=== PATIENT | female | born 1960 | race Caucasian/White ===

== ENCOUNTER → 2017-02-12 | Outpatient (CLI) | payer OTHER ==
[~2017-02-12] MED LIST: AMANTADINE HCL100 M1 PO; ASPERCREAM1 EA T; CETIRIZINE10 MG PO; DAYTIME NIGHTT PO; FLONASE ALLERG9.9 ML NAS; FLUOXETINE20 MG PO; HTN MED; HYDROCHLOROTHIA25 M1 PO; LISINOPRIL20 MG PO; MEDROL DOSEPAK4 MG PO; NAPROXEN500 M1 PO; PANTOPRAZOLE SO20 MG PO; PRAVACHOL40 MG PO; PRAVASTATIN SOD20 MG PO; PREDNISONE10 MG PO; PREDNISONE20 M1 PO; PULMICORT180 MCG/Ac IH; SEPTRA DS 800 M1 TAB PO; SPIRIVA -- 3018 MCG PO; TAMIFLU75 MG PO; TRAMADOL HCL50 MG PO; VENTOLIN H0.09 MG/AC INH; VITAMIN B121000 MC1 PO; ZITHROMAX250 MG PO
== END | disposition home or self-care (01) ==
LOC: RESCLI 03:04
DX: J44.9 Chronic obstructive pulmonary disease, unspecified (principal); M15.9 Polyosteoarthritis, unspecified; M17.10 Unilateral primary osteoarthritis, unspecified knee; R73.03 Prediabetes; R53.82 Chronic fatigue, unspecified; K21.9 Gastro-esophageal reflux disease without esophagitis; F41.9 Anxiety disorder, unspecified; H90.3 Sensorineural hearing loss, bilateral; I10 Essential (primary) hypertension; J30.1 Allergic rhinitis due to pollen; M62.89 Other specified disorders of muscle; E66.01 Morbid (severe) obesity due to excess calories

== ENCOUNTER → 2017-02-18 | Outpatient (CLI) | payer OTHER ==
[2017-02-18 08:08] LABS: BASO % 0.3 % (0.0-1.0); EOS # 0.1 10*3/uL (0.0-0.4); EOS % 1.3 % (1.0-4.0); HEMATOCRIT 41.8 % (37.0-47.0); LYMPH # 1.9 10*3/uL (1.3-4.4); LYMPH % 32.2 % (27.0-41.0); MEAN CELL VOLUME 83.8 fl (81.0-99.0); MEAN CORPUSCULAR HGB 26.1 pg (27.0-31.0); MEAN CORPUSCULAR HGB CONC 31.1 g/dl (33.0-37.0); MEAN PLATELET VOLUME 10.8 fl (9.6-12.3); MONO # 0.4 10*3/uL (0.1-1.0); MONO % 7.1 % (3.0-9.0); NEUT # 3.5 10*3/uL (2.3-7.9); NEUT % 58.8 % (47.0-73.0); PLATELET COUNT AUTOMATED 159 10*3/uL (130-400); RED BLOOD COUNT 4.99 10*6/uL (4.10-5.10); RED CELL DISTRI WIDTH 15.9 % (0-14.5)
[2017-02-18 08:35] LABS: ALBUMIN 3.9 gm/dl (3.1-4.5); ALKALINE PHOSPHATASE 85 U/L (45-117); BUN 20 mg/dl (7-24); CHLORIDE 106 mmol/L (98-107); CHOLESTEROL 221 mg/dL (<200); CREATININE 0.94 mg/dL (0.55-1.02); HDL CHOLESTEROL 73 mg/dl (40-60); IRON 57 ug/dL (50-170); LDL CHOLESTEROL 137 mg/dL (9-159); POTASSIUM 4.1 mmol/L (3.5-5.1); SGOT/AST 15 IU/L (3-35); SGPT/ALT 18 U/L (12-78); SODIUM 142 mmol/L (136-145); TOTAL IRON BINDING CAPACITY 360 ug/dl (250-450); TOTAL PROTEIN 7.3 gm/dL (6.4-8.2); TRIGLYCERIDES 55 mg/dl (<150); VLDL CHOLESTEROL 11 mg/dL (6-40)
== END | disposition home or self-care (01) ==
LOC: LAB 07:32
PROVIDERS: Internal Medicine
DX: R53.82 Chronic fatigue, unspecified (principal); R73.03 Prediabetes; E78.00 Pure hypercholesterolemia, unspecified; R79.89 Other specified abnormal findings of blood chemistry

== ENCOUNTER → 2017-08-12 | Outpatient (CLI) | payer OTHER | END | disposition home or self-care (01) | LOC: RESCLI 02:12 | DX: J44.9 Chronic obstructive pulmonary disease, unspecified (principal); R21 Rash and other nonspecific skin eruption; E11.9 Type 2 diabetes mellitus without complications; D12.6 Benign neoplasm of colon, unspecified; R05 Cough; F41.9 Anxiety disorder, unspecified; M62.89 Other specified disorders of muscle; K21.9 Gastro-esophageal reflux disease without esophagitis; J30.1 Allergic rhinitis due to pollen; I10 Essential (primary) hypertension; E66.01 Morbid (severe) obesity due to excess calories; M62.838 Other muscle spasm; G54.0 Brachial plexus disorders ==

== ENCOUNTER → 2017-08-16 | Outpatient (CLI) | payer OTHER ==
[2017-08-16 09:59] LABS: BASO % 0.5 % (0.0-1.0); EOS # 0.1 10*3/uL (0.0-0.4); EOS % 1.9 % (1.0-4.0); HEMATOCRIT 42.9 % (37.0-47.0); HEMOGLOBIN 13.2 g/dl (12.0-16.0); LYMPH # 1.2 10*3/uL (1.3-4.4); LYMPH % 29.4 % (27.0-41.0); MEAN CELL VOLUME 82.2 fl (81.0-99.0); MEAN CORPUSCULAR HGB 25.3 pg (27.0-31.0); MEAN CORPUSCULAR HGB CONC 30.8 g/dl (33.0-37.0); MEAN PLATELET VOLUME 9.8 fl (9.6-12.3); MONO # 0.3 10*3/uL (0.1-1.0); MONO % 7.9 % (3.0-9.0); NEUT # 2.5 10*3/uL (2.3-7.9); NEUT % 60.1 % (47.0-73.0); PLATELET COUNT AUTOMATED 165 10*3/uL (130-400); RED BLOOD COUNT 5.22 10*6/uL (4.10-5.10); RED CELL DISTRI WIDTH 15.2 % (0-14.5); WHITE BLOOD COUNT 4.2 10*3/uL (4.8-10.8)
[2017-08-16 10:29] LABS: ALBUMIN 3.8 gm/dl (3.1-4.5); ALKALINE PHOSPHATASE 74 U/L (45-117); BUN 20 mg/dl (7-24); CHLORIDE 102 mmol/L (98-107); CREATININE 0.98 mg/dL (0.55-1.02); POTASSIUM 4.1 mmol/L (3.5-5.1); SGOT/AST 17 IU/L (3-35); SGPT/ALT 22 U/L (12-78); SODIUM 138 mmol/L (136-145); TOTAL PROTEIN 7.1 gm/dL (6.4-8.2)
== END | disposition home or self-care (01) ==
LOC: LAB 09:39
PROVIDERS: Internal Medicine
DX: R21 Rash and other nonspecific skin eruption (principal); E11.9 Type 2 diabetes mellitus without complications

== ENCOUNTER → 2017-09-10 | Outpatient (CLI) | payer OTHER | END | disposition home or self-care (01) | LOC: RESCLI 00:28 | DX: E11.65 Type 2 diabetes mellitus with hyperglycemia (principal); I10 Essential (primary) hypertension; F41.9 Anxiety disorder, unspecified; J30.1 Allergic rhinitis due to pollen; J44.9 Chronic obstructive pulmonary disease, unspecified; M62.89 Other specified disorders of muscle; K21.9 Gastro-esophageal reflux disease without esophagitis; L85.3 Xerosis cutis; R60.9 Edema, unspecified; E78.5 Hyperlipidemia, unspecified ==

== ENCOUNTER → 2017-09-13 | Outpatient (CLI) | payer OTHER | END | disposition home or self-care (01) | LOC: RAD 09:42 | DX: R05 Cough (principal); J44.9 Chronic obstructive pulmonary disease, unspecified; E11.9 Type 2 diabetes mellitus without complications; I10 Essential (primary) hypertension; F17.200 Nicotine dependence, unspecified, uncomplicated; Z85.41 Personal history of malignant neoplasm of cervix uteri ==

== ENCOUNTER → 2017-09-18 | Outpatient (CLI) | payer OTHER | END | disposition home or self-care (01) | LOC: CARD 00:16 | DX: R60.9 Edema, unspecified (principal); J44.9 Chronic obstructive pulmonary disease, unspecified ==

== ENCOUNTER → 2017-10-24 | Outpatient (CLI) | payer OTHER | END | disposition home or self-care (01) | LOC: LAB 01:31 → MAMMO 09:00 | DX: M46.02 Spinal enthesopathy, cervical region (principal); M48.02 Spinal stenosis, cervical region; N64.52 Nipple discharge; R20.0 Anesthesia of skin ==

== ENCOUNTER → 2017-11-06 | Outpatient (CLI) | payer OTHER ==
[~2017-11-06] MED LIST changes: +Metformin Hydr500 MG PO
== END | disposition home or self-care (01) ==
LOC: RESCLI 03:15
DX: E11.65 Type 2 diabetes mellitus with hyperglycemia (principal); I10 Essential (primary) hypertension; J30.1 Allergic rhinitis due to pollen; J44.9 Chronic obstructive pulmonary disease, unspecified; F41.9 Anxiety disorder, unspecified; M62.89 Other specified disorders of muscle; K21.9 Gastro-esophageal reflux disease without esophagitis; L85.3 Xerosis cutis; E78.5 Hyperlipidemia, unspecified; M15.9 Polyosteoarthritis, unspecified; M77.9 Enthesopathy, unspecified; R35.0 Frequency of micturition; N64.52 Nipple discharge; E66.01 Morbid (severe) obesity due to excess calories; Z88.0 Allergy status to penicillin

== ENCOUNTER → 2017-11-08 | Outpatient (CLI) | payer OTHER ==
[2017-11-08 09:09] LABS: BASO % 0.6 % (0.0-1.0); EOS # 0.1 10*3/uL (0.0-0.4); EOS % 1.1 % (1.0-4.0); HEMATOCRIT 39.4 % (37.0-47.0); HEMOGLOBIN 12.2 g/dl (12.0-16.0); LYMPH # 1.4 10*3/uL (1.3-4.4); LYMPH % 25.4 % (27.0-41.0); MEAN CELL VOLUME 82.6 fl (81.0-99.0); MEAN CORPUSCULAR HGB 25.6 pg (27.0-31.0); MEAN PLATELET VOLUME 10.1 fl (9.6-12.3); MONO # 0.5 10*3/uL (0.1-1.0); MONO % 8.5 % (3.0-9.0); NEUT # 3.5 10*3/uL (2.3-7.9); PLATELET COUNT AUTOMATED 166 10*3/uL (130-400); RED BLOOD COUNT 4.77 10*6/uL (4.10-5.10); RED CELL DISTRI WIDTH 15.9 % (0-14.5); WHITE BLOOD COUNT 5.4 10*3/uL (4.8-10.8)
[2017-11-08 09:24] LABS: ALBUMIN 3.8 gm/dl (3.1-4.5); ALKALINE PHOSPHATASE 67 U/L (45-117); BUN 21 mg/dl (7-24); CHLORIDE 107 mmol/L (98-107); CHOLESTEROL 194 mg/dL (<200); CREATININE 0.98 mg/dL (0.55-1.02); HDL CHOLESTEROL 58 mg/dl (40-60); LDL CHOLESTEROL 123 mg/dL (9-159); POTASSIUM 4.2 mmol/L (3.5-5.1); SGOT/AST 16 IU/L (3-35); SGPT/ALT 23 U/L (12-78); SODIUM 142 mmol/L (136-145); TOTAL PROTEIN 6.9 gm/dL (6.4-8.2); TRIGLYCERIDES 66 mg/dl (<150); VLDL CHOLESTEROL 13 mg/dL (6-40)
== END | disposition home or self-care (01) ==
LOC: LAB 08:35
PROVIDERS: Internal Medicine
DX: I10 Essential (primary) hypertension (principal); E11.65 Type 2 diabetes mellitus with hyperglycemia

== ENCOUNTER → 2017-11-26 | Outpatient (CLI) | payer OTHER | END | disposition home or self-care (01) | LOC: RESCLI 04:40 | DX: I10 Essential (primary) hypertension (principal); J44.9 Chronic obstructive pulmonary disease, unspecified; E11.65 Type 2 diabetes mellitus with hyperglycemia; K21.9 Gastro-esophageal reflux disease without esophagitis; E78.5 Hyperlipidemia, unspecified; F41.9 Anxiety disorder, unspecified; E66.01 Morbid (severe) obesity due to excess calories; F32.9 Major depressive disorder, single episode, unspecified; J30.9 Allergic rhinitis, unspecified; M62.89 Other specified disorders of muscle; M15.9 Polyosteoarthritis, unspecified; M77.9 Enthesopathy, unspecified; L85.3 Xerosis cutis; G47.00 Insomnia, unspecified; Z68.41 Body mass index [BMI] 40.0-44.9, adult; Z87.891 Personal history of nicotine dependence; Z88.0 Allergy status to penicillin ==

== ENCOUNTER → 2017-12-18 | Day surgery (SDC) | payer OTHER ==
[~2017-12-18] VITALS: Ht 157.4 cm; Wt 102.5 kg
--- NOTE | ~2017-12-18 | O ---
[place], [place] OPERATIVE NOTE NAME: CHAPARRO COVARRUBIAS UNIT #: [id number] ROOM: DOCTOR: MORIS MARTIN MD BIRTHDATE: [birth year] DOS: 12/18/2017 HISTORY OF PRESENT ILLNESS: The patient was presented with chief complaint concern about history of colonic polyp as well as a change in bowel habit. PAST MEDICAL HISTORY: Obesity, COPD, diabetes mellitus, hypertension and hyperlipidemia. PAST SURGICAL HISTORY: , hysterectomy and podiatric surgeries. FAMILY HISTORY: Noncontributory. SOCIAL HISTORY: Nonsmoker, nonalcohol consumer. PROCEDURE: Today's procedure part of investigation is colonoscopy plus sessile polypectomy. PREMEDICATION: Propofol. SCOPE: Olympus folding colonoscope 10L video. REPORT: After putting the patient in left lateral position and application of lubricant to the scope, the scope was introduced; thereafter, under direct visualization, advanced through the length of colon without difficulty. Moderate to severe diverticulosis of sigmoid colon was identified. Sessile polypoid lesion in sigmoid colon, piecemeal polypectomy removed. Base of the cecum explored, appendiceal orifice identified, ileocecal valve was photographed. Air was suctioned out. The patient was extubated, tolerated the procedure well. IMPRESSION: [id number]-[id number] diverticulosis, sigmoid colon, sessile colonic polyp, sigmoid colon, status post piecemeal polypectomy. PLAN AND DISCUSSION: High fiber diet. This patient does not require for more colonoscopy before 7-10 years and high fiber would suffice low fatty food. ACTIVITY: Ad regla. FOLLOWUP: As outpatient. [place], [place] OPERATIVE NOTE NAME: CHAPARRO COVARRUBIAS UNIT #: [id number] ROOM: DOCTOR: MORIS MARTIN MD BIRTHDATE: [birth year] MORIS MARTIN MD CM:OPRECORD:OPERATIVE NOTE [id number] MORIS MARTIN MD 12/18/17 1130 interface
[2017-12-18 09:20] VITALS: BP 111/79
[2017-12-18 10:41] VITALS: BP 118/82
[2017-12-18 10:56] VITALS: BP 108/70
[2017-12-18 11:11] VITALS: BP 134/71
== END | disposition home or self-care (01) ==
LOC: SDC 12-12 11:00
DX: K63.5 Polyp of colon (principal); K57.30 Diverticulosis of large intestine without perforation or abscess without bleeding; I10 Essential (primary) hypertension; E11.9 Type 2 diabetes mellitus without complications; J44.9 Chronic obstructive pulmonary disease, unspecified; E78.5 Hyperlipidemia, unspecified; K21.9 Gastro-esophageal reflux disease without esophagitis; E66.01 Morbid (severe) obesity due to excess calories; Z90.710 Acquired absence of both cervix and uterus; Z98.890 Other specified postprocedural states; Z79.899 Other long term (current) drug therapy; Z85.41 Personal history of malignant neoplasm of cervix uteri; Z82.49 Family history of ischemic heart disease and other diseases of the circulatory system; Z68.41 Body mass index [BMI] 40.0-44.9, adult

== ENCOUNTER → 2018-02-25 | Outpatient (CLI) | payer OTHER | END | disposition home or self-care (01) | LOC: RESCLI 03:42 | DX: I10 Essential (primary) hypertension (principal); M62.89 Other specified disorders of muscle; K21.9 Gastro-esophageal reflux disease without esophagitis; E78.5 Hyperlipidemia, unspecified; E11.65 Type 2 diabetes mellitus with hyperglycemia; G47.00 Insomnia, unspecified; J44.9 Chronic obstructive pulmonary disease, unspecified; F41.9 Anxiety disorder, unspecified; F32.1 Major depressive disorder, single episode, moderate; J30.1 Allergic rhinitis due to pollen; M15.9 Polyosteoarthritis, unspecified; N32.81 Overactive bladder; Z79.899 Other long term (current) drug therapy; Z79.82 Long term (current) use of aspirin; Z87.891 Personal history of nicotine dependence ==

== ENCOUNTER → 2018-03-05 | Outpatient (CLI) | payer OTHER ==
[2018-03-05 09:58] LABS: ALBUMIN 3.7 gm/dl (3.1-4.5); ALKALINE PHOSPHATASE 70 U/L (45-117); BUN 19 mg/dl (7-24); CHLORIDE 102 mmol/L (98-107); CHOLESTEROL 166 mg/dL (<200); CREATININE 0.96 mg/dL (0.55-1.02); HDL CHOLESTEROL 64 mg/dl (40-60); LDL CHOLESTEROL 88 mg/dL (9-159); POTASSIUM 3.9 mmol/L (3.5-5.1); SGOT/AST 20 IU/L (3-35); SGPT/ALT 25 U/L (12-78); SODIUM 138 mmol/L (136-145); TOTAL PROTEIN 6.8 gm/dL (6.4-8.2); TRIGLYCERIDES 69 mg/dl (<150); VLDL CHOLESTEROL 14 mg/dL (6-40)
[2018-03-05 10:35] LABS: BASO % 0.6 % (0.0-1.0); EOS # 0.1 10*3/uL (0.0-0.4); EOS % 1.4 % (1.0-4.0); HEMATOCRIT 40.3 % (37.0-47.0); HEMOGLOBIN 12.4 g/dl (12.0-16.0); LYMPH # 1.3 10*3/uL (1.3-4.4); LYMPH % 25.9 % (27.0-41.0); MEAN CELL VOLUME 81.4 fl (81.0-99.0); MEAN CORPUSCULAR HGB 25.1 pg (27.0-31.0); MEAN CORPUSCULAR HGB CONC 30.8 g/dl (33.0-37.0); MEAN PLATELET VOLUME 10.4 fl (9.6-12.3); MONO # 0.4 10*3/uL (0.1-1.0); MONO % 8.4 % (3.0-9.0); NEUT # 3.2 10*3/uL (2.3-7.9); NEUT % 63.5 % (47.0-73.0); PLATELET COUNT AUTOMATED 171 10*3/uL (130-400); RED BLOOD COUNT 4.95 10*6/uL (4.10-5.10); RED CELL DISTRI WIDTH 15.2 % (0-14.5)
== END | disposition home or self-care (01) ==
LOC: LAB 08:40
PROVIDERS: Internal Medicine
DX: E11.65 Type 2 diabetes mellitus with hyperglycemia (principal)

== ENCOUNTER → 2018-04-01 | Outpatient (CLI) | payer OTHER ==
[2018-04-01 10:18] LABS: BILIRUBIN NEGATIVE (NEGATIVE); BLOOD NEGATIVE (NEGATIVE); CLARITY SL CLOUDY (CLEAR); COLOR YELLOW (YELLOW); GLUCOSE NEGATIVE (NEGATIVE); KETONE NEGATIVE (NEGATIVE); LEUKO ESTERASE NEGATIVE (NEGATIVE); NITRITE NEGATIVE (NEGATIVE); UROBILINOGEN 0.2 E.U./dl (0.2-1.0)
[2018-04-01 10:27] LABS: BACTERIA 2+; EPITHELIAL CELLS 21-30
== END | disposition home or self-care (01) ==
LOC: RESCLI 03:20
PROVIDERS: Internal Medicine
DX: E11.65 Type 2 diabetes mellitus with hyperglycemia (principal); R30.0 Dysuria; N64.3 Galactorrhea not associated with childbirth; R60.9 Edema, unspecified; I10 Essential (primary) hypertension; M62.89 Other specified disorders of muscle; K21.9 Gastro-esophageal reflux disease without esophagitis; E78.5 Hyperlipidemia, unspecified; G47.00 Insomnia, unspecified; J44.9 Chronic obstructive pulmonary disease, unspecified; F41.9 Anxiety disorder, unspecified; F32.1 Major depressive disorder, single episode, moderate; J30.1 Allergic rhinitis due to pollen; N94.10 Unspecified dyspareunia; E66.01 Morbid (severe) obesity due to excess calories; Z79.899 Other long term (current) drug therapy; Z79.82 Long term (current) use of aspirin; Z87.891 Personal history of nicotine dependence; Z88.0 Allergy status to penicillin; Z88.8 Allergy status to other drugs, medicaments and biological substances

== ENCOUNTER → 2018-04-23 | Outpatient (CLI) | payer OTHER | END | disposition home or self-care (01) | LOC: CARD 04-18 08:00 | DX: R60.9 Edema, unspecified (principal) ==

== ENCOUNTER → 2018-05-06 | Outpatient (CLI) | payer OTHER | END | disposition home or self-care (01) | LOC: RESCLI 00:58 | DX: E11.65 Type 2 diabetes mellitus with hyperglycemia (principal); R60.9 Edema, unspecified; M15.9 Polyosteoarthritis, unspecified; I10 Essential (primary) hypertension; M62.89 Other specified disorders of muscle; K21.9 Gastro-esophageal reflux disease without esophagitis; E78.5 Hyperlipidemia, unspecified; G47.00 Insomnia, unspecified; J44.9 Chronic obstructive pulmonary disease, unspecified; F41.9 Anxiety disorder, unspecified; F32.1 Major depressive disorder, single episode, moderate; J30.1 Allergic rhinitis due to pollen; R53.82 Chronic fatigue, unspecified; N64.3 Galactorrhea not associated with childbirth; J30.2 Other seasonal allergic rhinitis; N94.9 Unspecified condition associated with female genital organs and menstrual cycle; K59.00 Constipation, unspecified; E66.01 Morbid (severe) obesity due to excess calories; Z79.84 Long term (current) use of oral hypoglycemic drugs; Z79.899 Other long term (current) drug therapy; Z79.82 Long term (current) use of aspirin; Z87.891 Personal history of nicotine dependence; Z88.0 Allergy status to penicillin; Z88.8 Allergy status to other drugs, medicaments and biological substances ==

== ENCOUNTER → 2018-06-13 | Outpatient (CLI) | payer OTHER | END | disposition home or self-care (01) | DX: I10 Essential (primary) hypertension (principal); R60.9 Edema, unspecified; M15.9 Polyosteoarthritis, unspecified; M62.89 Other specified disorders of muscle; K21.9 Gastro-esophageal reflux disease without esophagitis; E78.5 Hyperlipidemia, unspecified; G47.00 Insomnia, unspecified; J44.9 Chronic obstructive pulmonary disease, unspecified; F41.9 Anxiety disorder, unspecified; F32.1 Major depressive disorder, single episode, moderate; J30.1 Allergic rhinitis due to pollen; J30.2 Other seasonal allergic rhinitis; N94.9 Unspecified condition associated with female genital organs and menstrual cycle; K59.00 Constipation, unspecified; E11.65 Type 2 diabetes mellitus with hyperglycemia; N76.0 Acute vaginitis; Z79.899 Other long term (current) drug therapy; Z88.0 Allergy status to penicillin; Z88.8 Allergy status to other drugs, medicaments and biological substances ==

== ENCOUNTER → 2018-07-10 | Outpatient (CLI) | payer OTHER | END | disposition home or self-care (01) | LOC: RESCLI 03:14 | DX: I10 Essential (primary) hypertension (principal); L23.2 Allergic contact dermatitis due to cosmetics; E11.65 Type 2 diabetes mellitus with hyperglycemia; R60.9 Edema, unspecified; M15.9 Polyosteoarthritis, unspecified; M62.89 Other specified disorders of muscle; K21.9 Gastro-esophageal reflux disease without esophagitis; E78.5 Hyperlipidemia, unspecified; G47.00 Insomnia, unspecified; J44.9 Chronic obstructive pulmonary disease, unspecified; J30.1 Allergic rhinitis due to pollen; K59.00 Constipation, unspecified; Z79.899 Other long term (current) drug therapy; Z88.0 Allergy status to penicillin; Z87.891 Personal history of nicotine dependence ==

== ENCOUNTER → 2018-09-24 | Outpatient (CLI) | payer OTHER | END | disposition home or self-care (01) | LOC: RESCLI 02:54 | DX: M17.4 Other bilateral secondary osteoarthritis of knee (principal); J30.2 Other seasonal allergic rhinitis; R60.9 Edema, unspecified; I10 Essential (primary) hypertension; M62.89 Other specified disorders of muscle; K21.9 Gastro-esophageal reflux disease without esophagitis; E78.5 Hyperlipidemia, unspecified; G47.00 Insomnia, unspecified; J44.9 Chronic obstructive pulmonary disease, unspecified; J30.1 Allergic rhinitis due to pollen; K59.00 Constipation, unspecified; E11.65 Type 2 diabetes mellitus with hyperglycemia; L23.2 Allergic contact dermatitis due to cosmetics; Z79.899 Other long term (current) drug therapy; Z79.82 Long term (current) use of aspirin; Z79.84 Long term (current) use of oral hypoglycemic drugs; Z90.710 Acquired absence of both cervix and uterus; Z87.891 Personal history of nicotine dependence; Z88.0 Allergy status to penicillin; Z88.8 Allergy status to other drugs, medicaments and biological substances ==

== ENCOUNTER → 2018-10-28 | Outpatient (CLI) | payer OTHER | END | disposition home or self-care (01) | LOC: RESCLI 01:33 | DX: M79.604 Pain in right leg (principal); K59.00 Constipation, unspecified; K21.9 Gastro-esophageal reflux disease without esophagitis; J44.9 Chronic obstructive pulmonary disease, unspecified; E11.65 Type 2 diabetes mellitus with hyperglycemia; J30.2 Other seasonal allergic rhinitis; M15.9 Polyosteoarthritis, unspecified; M62.89 Other specified disorders of muscle; G47.00 Insomnia, unspecified; R60.9 Edema, unspecified; L23.2 Allergic contact dermatitis due to cosmetics; I10 Essential (primary) hypertension; E78.5 Hyperlipidemia, unspecified; Z79.899 Other long term (current) drug therapy; Z79.82 Long term (current) use of aspirin; Z87.891 Personal history of nicotine dependence; Z88.0 Allergy status to penicillin; Z88.8 Allergy status to other drugs, medicaments and biological substances ==

== ENCOUNTER → 2018-12-03 | Outpatient (CLI) | payer OTHER | END | disposition home or self-care (01) | LOC: RESCLI 00:09 | DX: M62.89 Other specified disorders of muscle (principal); G47.00 Insomnia, unspecified; J44.9 Chronic obstructive pulmonary disease, unspecified; I10 Essential (primary) hypertension; K21.9 Gastro-esophageal reflux disease without esophagitis; E78.5 Hyperlipidemia, unspecified; E11.65 Type 2 diabetes mellitus with hyperglycemia; R60.9 Edema, unspecified; J30.2 Other seasonal allergic rhinitis; M79.604 Pain in right leg; K59.00 Constipation, unspecified; N95.2 Postmenopausal atrophic vaginitis; F32.9 Major depressive disorder, single episode, unspecified; Z87.891 Personal history of nicotine dependence; Z79.899 Other long term (current) drug therapy ==

== ENCOUNTER → 2018-12-24 | Outpatient (CLI) | payer OTHER ==
[2018-12-24 09:40] LABS: BASO % 0.6 % (0.0-1.0); EOS # 0.1 10*3/uL (0.0-0.4); EOS % 2.1 % (1.0-4.0); HEMATOCRIT 43.8 % (37.0-47.0); LYMPH # 1.6 10*3/uL (1.3-4.4); LYMPH % 30.7 % (27.0-41.0); MEAN CELL VOLUME 81.6 fl (81.0-99.0); MEAN CORPUSCULAR HGB 24.2 pg (27.0-31.0); MEAN CORPUSCULAR HGB CONC 29.7 g/dl (33.0-37.0); MEAN PLATELET VOLUME 10.4 fl (9.6-12.3); MONO # 0.5 10*3/uL (0.1-1.0); MONO % 9.3 % (3.0-9.0); NEUT % 57.1 % (47.0-73.0); PLATELET COUNT AUTOMATED 218 10*3/uL (130-400); RED BLOOD COUNT 5.37 10*6/uL (4.10-5.10); RED CELL DISTRI WIDTH 16.4 % (0-14.5); WHITE BLOOD COUNT 5.2 10*3/uL (4.8-10.8)
[2018-12-24 10:09] LABS: ALBUMIN 3.9 gm/dl (3.1-4.5); ALKALINE PHOSPHATASE 71 U/L (45-117); BUN 17 mg/dl (7-24); CHLORIDE 103 mmol/L (98-107); CHOLESTEROL 140 mg/dL (<200); CREATININE 1.01 mg/dL (0.55-1.02); HDL CHOLESTEROL 75 mg/dl (40-60); LDL CHOLESTEROL 53 mg/dL (9-159); POTASSIUM 4.4 mmol/L (3.5-5.1); SGOT/AST 20 IU/L (3-35); SGPT/ALT 36 U/L (12-78); SODIUM 138 mmol/L (136-145); TOTAL PROTEIN 7.2 gm/dL (6.4-8.2); TRIGLYCERIDES 58 mg/dl (<150); VLDL CHOLESTEROL 12 mg/dL (6-40)
== END | disposition home or self-care (01) ==
LOC: LAB 09:00
PROVIDERS: Internal Medicine
DX: E11.65 Type 2 diabetes mellitus with hyperglycemia (principal); R60.9 Edema, unspecified; I10 Essential (primary) hypertension; E78.5 Hyperlipidemia, unspecified

== ENCOUNTER → 2019-01-01 | Outpatient (CLI) | payer OTHER | END | disposition home or self-care (01) | LOC: RESCLI 00:32 | DX: E11.65 Type 2 diabetes mellitus with hyperglycemia (principal); I12.9 Hypertensive chronic kidney disease with stage 1 through stage 4 chronic kidney disease, or unspecified chronic kidney disease; E11.22 Type 2 diabetes mellitus with diabetic chronic kidney disease; N18.3 Chronic kidney disease, stage 3 (moderate); N95.2 Postmenopausal atrophic vaginitis; E78.5 Hyperlipidemia, unspecified; K21.9 Gastro-esophageal reflux disease without esophagitis; J44.9 Chronic obstructive pulmonary disease, unspecified; G47.00 Insomnia, unspecified; M62.89 Other specified disorders of muscle; J30.2 Other seasonal allergic rhinitis; R60.9 Edema, unspecified; M79.604 Pain in right leg; K59.00 Constipation, unspecified; E66.01 Morbid (severe) obesity due to excess calories; Z79.899 Other long term (current) drug therapy ==

== ENCOUNTER → 2019-01-14 | Outpatient (CLI) | payer OTHER | END | disposition home or self-care (01) | LOC: MAMMO 10:03 | DX: Z12.31 Encounter for screening mammogram for malignant neoplasm of breast (principal) ==

== ENCOUNTER → 2019-04-02 | Outpatient (CLI) | payer OTHER ==
[2019-04-02 11:54] LABS: BILIRUBIN NEGATIVE (NEGATIVE); BLOOD NEGATIVE (NEGATIVE); CLARITY CLEAR (CLEAR); COLOR YELLOW (YELLOW); GLUCOSE 3+ (NEGATIVE); KETONE NEGATIVE (NEGATIVE); LEUKO ESTERASE NEGATIVE (NEGATIVE); NITRITE NEGATIVE (NEGATIVE); PH 6.5 (5.0-9.0); SPECIFIC GRAVITY <= 1.005 (1.005-1.030); UROBILINOGEN 0.2 E.U./dl (0.2-1.0)
[2019-04-02 12:11] LABS: BACTERIA TRACE; EPITHELIAL CELLS 0-2; WBC 0-2 wbc/hpf (0-5)
== END | disposition home or self-care (01) ==
LOC: RESCLI 01:13
PROVIDERS: Internal Medicine Nephrology
DX: R39.15 Urgency of urination (principal); M79.10 Myalgia, unspecified site; R09.81 Nasal congestion; H66.90 Otitis media, unspecified, unspecified ear; J44.9 Chronic obstructive pulmonary disease, unspecified; J45.909 Unspecified asthma, uncomplicated; E78.5 Hyperlipidemia, unspecified; Z79.899 Other long term (current) drug therapy

== ENCOUNTER → 2019-04-15 | Outpatient (CLI) | payer OTHER | END | disposition home or self-care (01) | LOC: RESCLI 00:51 | DX: M79.604 Pain in right leg (principal); E11.65 Type 2 diabetes mellitus with hyperglycemia; E78.5 Hyperlipidemia, unspecified; I10 Essential (primary) hypertension; J44.9 Chronic obstructive pulmonary disease, unspecified; G47.00 Insomnia, unspecified; M62.89 Other specified disorders of muscle; J30.2 Other seasonal allergic rhinitis; K59.00 Constipation, unspecified; R60.9 Edema, unspecified; K21.9 Gastro-esophageal reflux disease without esophagitis; H66.90 Otitis media, unspecified, unspecified ear; R09.81 Nasal congestion; Z79.899 Other long term (current) drug therapy; Z87.891 Personal history of nicotine dependence ==

== ENCOUNTER → 2019-05-20 | Outpatient (CLI) | payer OTHER | END | disposition home or self-care (01) | LOC: RESCLI 01:14 | DX: Z13.31 Encounter for screening for depression (principal); E11.65 Type 2 diabetes mellitus with hyperglycemia; E55.9 Vitamin D deficiency, unspecified; R19.7 Diarrhea, unspecified; F32.9 Major depressive disorder, single episode, unspecified; M79.604 Pain in right leg; E78.5 Hyperlipidemia, unspecified; I10 Essential (primary) hypertension; J44.9 Chronic obstructive pulmonary disease, unspecified; G47.00 Insomnia, unspecified; M62.89 Other specified disorders of muscle; J30.2 Other seasonal allergic rhinitis; K59.00 Constipation, unspecified; R60.9 Edema, unspecified; K21.9 Gastro-esophageal reflux disease without esophagitis; Z79.899 Other long term (current) drug therapy; Z87.891 Personal history of nicotine dependence ==

== ENCOUNTER → 2019-05-22 | Outpatient (CLI) | payer OTHER ==
[2019-05-22 12:31] LABS: BASO % 0.5 % (0.0-1.0); EOS # 0.1 10*3/uL (0.0-0.4); EOS % 1.2 % (1.0-4.0); LYMPH # 1.7 10*3/uL (1.3-4.4); LYMPH % 26.3 % (27.0-41.0); MEAN CELL VOLUME 79.6 fl (81.0-99.0); MEAN CORPUSCULAR HGB 23.5 pg (27.0-31.0); MEAN CORPUSCULAR HGB CONC 29.5 g/dl (33.0-37.0); MEAN PLATELET VOLUME 10.6 fl (9.6-12.3); MONO # 0.4 10*3/uL (0.1-1.0); MONO % 6.5 % (3.0-9.0); NEUT # 4.3 10*3/uL (2.3-7.9); NEUT % 65.3 % (47.0-73.0); PLATELET COUNT AUTOMATED 212 10*3/uL (130-400); RED BLOOD COUNT 5.53 10*6/uL (4.10-5.10); RED CELL DISTRI WIDTH 16.1 % (0-14.5); WHITE BLOOD COUNT 6.6 10*3/uL (4.8-10.8)
[2019-05-22 12:54] LABS: ALBUMIN 3.6 gm/dl (3.1-4.5); ALKALINE PHOSPHATASE 90 U/L (45-117); BUN 15 mg/dl (7-24); CHLORIDE 104 mmol/L (98-107); CREATININE 0.92 mg/dL (0.55-1.02); POTASSIUM 3.8 mmol/L (3.5-5.1); SGOT/AST 18 IU/L (3-35); SGPT/ALT 31 U/L (12-78); SODIUM 139 mmol/L (136-145); TOTAL PROTEIN 7.3 gm/dL (6.4-8.2)
[2019-05-23 09:09] LABS: CREATININE,URINE 66.6 mg/dL (Not Estab.); MICRO ALBUMIN/CRE RATIO <4.5 (0.0-30.0)
== END | disposition home or self-care (01) ==
LOC: LAB 11:49
PROVIDERS: Internal Medicine
DX: E11.65 Type 2 diabetes mellitus with hyperglycemia (principal); E55.9 Vitamin D deficiency, unspecified; R19.7 Diarrhea, unspecified

== ENCOUNTER → 2019-05-26 | Outpatient (CLI) | payer OTHER | END | disposition home or self-care (01) | LOC: LAB 09:24 | DX: E11.65 Type 2 diabetes mellitus with hyperglycemia (principal); E55.9 Vitamin D deficiency, unspecified; R19.7 Diarrhea, unspecified ==

== ENCOUNTER → 2019-06-02 | Outpatient (CLI) | payer OTHER | END | disposition home or self-care (01) | LOC: RESCLI 02:14 | DX: E11.65 Type 2 diabetes mellitus with hyperglycemia (principal); M79.604 Pain in right leg; E78.5 Hyperlipidemia, unspecified; I10 Essential (primary) hypertension; J44.9 Chronic obstructive pulmonary disease, unspecified; G47.00 Insomnia, unspecified; M62.89 Other specified disorders of muscle; K59.00 Constipation, unspecified; R60.9 Edema, unspecified; K21.9 Gastro-esophageal reflux disease without esophagitis; J30.2 Other seasonal allergic rhinitis; F32.9 Major depressive disorder, single episode, unspecified; Z79.899 Other long term (current) drug therapy; Z88.0 Allergy status to penicillin; Z88.8 Allergy status to other drugs, medicaments and biological substances; Z98.890 Other specified postprocedural states ==

== ENCOUNTER → 2019-06-23 | Outpatient (CLI) | payer OTHER | END | disposition home or self-care (01) | LOC: RESCLI 00:46 | DX: M62.89 Other specified disorders of muscle (principal); E11.65 Type 2 diabetes mellitus with hyperglycemia; M79.604 Pain in right leg; E78.5 Hyperlipidemia, unspecified; I10 Essential (primary) hypertension; G47.00 Insomnia, unspecified; K59.00 Constipation, unspecified; K21.9 Gastro-esophageal reflux disease without esophagitis; F32.9 Major depressive disorder, single episode, unspecified; J44.9 Chronic obstructive pulmonary disease, unspecified; R60.9 Edema, unspecified; Z79.899 Other long term (current) drug therapy; Z88.0 Allergy status to penicillin; Z88.6 Allergy status to analgesic agent; Z98.890 Other specified postprocedural states ==

== ENCOUNTER → 2019-07-28 | Outpatient (CLI) | payer OTHER | END | disposition home or self-care (01) | LOC: RESCLI 02:06 | DX: M62.89 Other specified disorders of muscle (principal); E11.65 Type 2 diabetes mellitus with hyperglycemia; M79.604 Pain in right leg; E78.5 Hyperlipidemia, unspecified; I10 Essential (primary) hypertension; G47.00 Insomnia, unspecified; K21.9 Gastro-esophageal reflux disease without esophagitis; J44.9 Chronic obstructive pulmonary disease, unspecified; F32.9 Major depressive disorder, single episode, unspecified; J30.2 Other seasonal allergic rhinitis; R60.9 Edema, unspecified; Z88.0 Allergy status to penicillin; Z88.8 Allergy status to other drugs, medicaments and biological substances; Z79.899 Other long term (current) drug therapy ==

== ENCOUNTER 2019-10-26 12:38 | Emergency (ER) | payer OTHER ==
[~2019-10-26] VITALS: Ht 157.4 cm; Wt 105.7 kg
[2019-10-26] MEDS ORDERED: DOXYCYCLINE100 M3 PO (13:40)
[2019-10-26 14:23] VITALS: BP 112/70
== END 2019-10-26 14:30 | disposition home or self-care (01) ==
LOC: ED 12:38
DX: J01.90 Acute sinusitis, unspecified (principal); J45.909 Unspecified asthma, uncomplicated; I10 Essential (primary) hypertension; J44.9 Chronic obstructive pulmonary disease, unspecified; Z88.8 Allergy status to other drugs, medicaments and biological substances; Z88.0 Allergy status to penicillin; Z79.899 Other long term (current) drug therapy

== ENCOUNTER → 2019-12-30 | Outpatient (CLI) | payer OTHER ==
[~2019-12-30] MED LIST changes: +DOXYCYCLINE100 M3 PO
== END | disposition home or self-care (01) ==
LOC: COVID19 01:34
DX: U07.1 COVID-19 (principal)

== ENCOUNTER → 2020-01-20 | Outpatient (CLI) | payer OTHER | END | disposition home or self-care (01) | LOC: COVID19 00:13 | DX: U07.1 COVID-19 (principal) ==

== ENCOUNTER → 2020-03-29 | Outpatient (CLI) | payer OTHER | END | disposition home or self-care (01) | LOC: RESCLI 01:06 | PROVIDERS: ATTEND Internal Medicine | DX: I12.9 Hypertensive chronic kidney disease with stage 1 through stage 4 chronic kidney disease, or unspecified chronic kidney disease (principal); N18.30 Chronic kidney disease, stage 3 unspecified; E11.65 Type 2 diabetes mellitus with hyperglycemia; R53.82 Chronic fatigue, unspecified; E55.9 Vitamin D deficiency, unspecified; E78.5 Hyperlipidemia, unspecified; H66.001 Acute suppurative otitis media without spontaneous rupture of ear drum, right ear; R60.9 Edema, unspecified; G47.00 Insomnia, unspecified; K21.9 Gastro-esophageal reflux disease without esophagitis; F41.9 Anxiety disorder, unspecified; J44.9 Chronic obstructive pulmonary disease, unspecified; E66.01 Morbid (severe) obesity due to excess calories; J30.1 Allergic rhinitis due to pollen; M17.10 Unilateral primary osteoarthritis, unspecified knee; N32.81 Overactive bladder; F32.9 Major depressive disorder, single episode, unspecified; Z68.41 Body mass index [BMI] 40.0-44.9, adult; Z12.31 Encounter for screening mammogram for malignant neoplasm of breast; Z79.899 Other long term (current) drug therapy; Z87.891 Personal history of nicotine dependence; Z98.890 Other specified postprocedural states ==

== ENCOUNTER → 2020-06-09 | Outpatient (CLI) | payer OTHER ==
[2020-06-09 10:07] LABS: BASO % 0.3 % (0.0-1.0); EOS # 0.1 10*3/uL (0.0-0.4); EOS % 1.3 % (1.0-4.0); HEMATOCRIT 45.4 % (37.0-47.0); LYMPH # 1.6 10*3/uL (1.3-4.4); MEAN CELL VOLUME 83.6 fl (81.0-99.0); MEAN CORPUSCULAR HGB 24.7 pg (27.0-31.0); MEAN CORPUSCULAR HGB CONC 29.5 g/dl (33.0-37.0); MEAN PLATELET VOLUME 10.3 fl (9.6-12.3); MONO # 0.4 10*3/uL (0.1-1.0); MONO % 6.6 % (3.0-9.0); NEUT # 4.2 10*3/uL (2.3-7.9); NEUT % 66.6 % (47.0-73.0); PLATELET COUNT AUTOMATED 183 10*3/uL (130-400); RED BLOOD COUNT 5.43 10*6/uL (4.10-5.10); RED CELL DISTRI WIDTH 16.1 % (0-14.5); WHITE BLOOD COUNT 6.3 10*3/uL (4.8-10.8)
[2020-06-09 10:22] LABS: ALBUMIN 3.7 gm/dl (3.1-4.5); ALKALINE PHOSPHATASE 79 U/L (45-117); BUN 18 mg/dl (7-24); CHLORIDE 105 mmol/L (98-107); CHOLESTEROL 188 mg/dL (<200); CREATININE 0.92 mg/dL (0.55-1.02); HDL CHOLESTEROL 66 mg/dl (40-60); LDL CHOLESTEROL 103 mg/dL (9-159); POTASSIUM 4.2 mmol/L (3.5-5.1); SGOT/AST 15 IU/L (3-35); SGPT/ALT 27 U/L (12-78); SODIUM 142 mmol/L (136-145); TOTAL PROTEIN 7.1 gm/dL (6.4-8.2); TRIGLYCERIDES 97 mg/dl (<150); VLDL CHOLESTEROL 19 mg/dL (6-40)
[2020-06-10 09:16] LABS: CREATININE,URINE 27.6 mg/dL (Not Estab.); MICRO ALBUMIN/CRE RATIO <11 (0-29)
== END | disposition home or self-care (01) ==
LOC: LAB 09:13 → MAMMO 09:30
PROVIDERS: Student in an Organized Health Care Education/Training Program; ATTEND Internal Medicine Nephrology
DX: Z12.31 Encounter for screening mammogram for malignant neoplasm of breast (principal); E11.65 Type 2 diabetes mellitus with hyperglycemia; E55.9 Vitamin D deficiency, unspecified; E78.5 Hyperlipidemia, unspecified

== ENCOUNTER → 2020-07-13 | Outpatient (CLI) | payer OTHER | END | disposition home or self-care (01) | LOC: RESCLI 00:40 | PROVIDERS: ATTEND Internal Medicine Nephrology | DX: E11.65 Type 2 diabetes mellitus with hyperglycemia (principal); E78.5 Hyperlipidemia, unspecified; I10 Essential (primary) hypertension; G47.00 Insomnia, unspecified; H66.001 Acute suppurative otitis media without spontaneous rupture of ear drum, right ear; J30.1 Allergic rhinitis due to pollen; N94.10 Unspecified dyspareunia; J44.9 Chronic obstructive pulmonary disease, unspecified; F32.9 Major depressive disorder, single episode, unspecified; K21.9 Gastro-esophageal reflux disease without esophagitis; R60.9 Edema, unspecified; M17.10 Unilateral primary osteoarthritis, unspecified knee; E55.9 Vitamin D deficiency, unspecified; Z79.84 Long term (current) use of oral hypoglycemic drugs; Z79.82 Long term (current) use of aspirin; Z79.899 Other long term (current) drug therapy; Z88.0 Allergy status to penicillin; Z88.8 Allergy status to other drugs, medicaments and biological substances ==

== ENCOUNTER → 2020-08-10 | Outpatient (CLI) | payer OTHER | END | disposition home or self-care (01) | LOC: RESCLI 09:18 | PROVIDERS: ATTEND Emergency Medicine | DX: J01.90 Acute sinusitis, unspecified (principal); I10 Essential (primary) hypertension; E11.9 Type 2 diabetes mellitus without complications; J44.9 Chronic obstructive pulmonary disease, unspecified; M47.22 Other spondylosis with radiculopathy, cervical region; Z79.899 Other long term (current) drug therapy; Z88.0 Allergy status to penicillin; Z88.8 Allergy status to other drugs, medicaments and biological substances ==

== ENCOUNTER 2020-09-01 09:46 | Emergency (ER) | payer OTHER ==
[~2020-09-01] VITALS: Ht 154.9 cm; Wt 112.5 kg
[2020-09-01 09:54] VITALS: BP 135/82
[2020-09-01 10:42] LABS: BASO % 0.3 % (0.0-1.0); EOS # 0.1 10*3/uL (0.0-0.4); EOS % 0.7 % (1.0-4.0); HEMATOCRIT 44.7 % (37.0-47.0); LYMPH # 1.3 10*3/uL (1.3-4.4); LYMPH % 18.8 % (27.0-41.0); MEAN CELL VOLUME 83.4 fl (81.0-99.0); MEAN CORPUSCULAR HGB 25.7 pg (27.0-31.0); MEAN CORPUSCULAR HGB CONC 30.9 g/dl (33.0-37.0); MEAN PLATELET VOLUME 10.7 fl (9.6-12.3); MONO # 0.5 10*3/uL (0.1-1.0); MONO % 7.7 % (3.0-9.0); NEUT # 5.1 10*3/uL (2.3-7.9); NEUT % 72.1 % (47.0-73.0); PLATELET COUNT AUTOMATED 190 10*3/uL (130-400); RED BLOOD COUNT 5.36 10*6/uL (4.10-5.10); RED CELL DISTRI WIDTH 16.4 % (0-14.5)
[2020-09-01 10:56] LABS: ALBUMIN 3.8 gm/dl (3.1-4.5); ALKALINE PHOSPHATASE 82 U/L (45-117); BUN 14 mg/dl (7-24); CHLORIDE 105 mmol/L (98-107); CREATININE 0.94 mg/dL (0.55-1.02); POTASSIUM 3.9 mmol/L (3.5-5.1); SGOT/AST 16 IU/L (3-35); SGPT/ALT 27 U/L (12-78); SODIUM 141 mmol/L (136-145); TOTAL PROTEIN 7.5 gm/dL (6.4-8.2)
[2020-09-01 10:56] LABS: BILIRUBIN Negative (Negative); BLOOD Negative (Negative); CLARITY Clear (Clear); COLOR Yellow (Yellow); GLUCOSE Negative (Negative); KETONE Negative (Negative); LEUKO ESTERASE Negative (Negative); NITRITE Negative (Negative); UROBILINOGEN 0.2 E.U./dl (0.0-1.0)
[2020-09-01 10:58] LABS: ACETAMINOPHEN (TYLENOL) < 5.0 ug/ml (10-30); ETHYL ALCOHOL < 3.0 mg/dl (<3)
[2020-09-01 11:07] LABS: URINE AMPHETAMINES < 1000 (1000ng/ml); URINE BARBITURATES < 200 (200ng/ml); URINE BENZODIAZEPINES < 200 (200ng/ml); URINE CANNABINOIDS (THC) > 50 (50ng/ml); URINE COCAINE < 300 (300ng/ml); URINE METHADONE < 300 (300ng/ml); URINE OPIATES < 300 (300ng/ml)
[2020-09-01 11:12] LABS: URINE PHENCYCLIDINE < 25 (25ng/ml)
== END 2020-09-01 12:39 | disposition home or self-care (01) ==
LOC: ED 09:46
PROVIDERS: Student in an Organized Health Care Education/Training Program
DX: F41.9 Anxiety disorder, unspecified (principal); F39 Unspecified mood [affective] disorder; I10 Essential (primary) hypertension; J44.9 Chronic obstructive pulmonary disease, unspecified; Z88.0 Allergy status to penicillin; Z88.8 Allergy status to other drugs, medicaments and biological substances; Z88.5 Allergy status to narcotic agent; Z79.899 Other long term (current) drug therapy; Z79.84 Long term (current) use of oral hypoglycemic drugs; Z90.711 Acquired absence of uterus with remaining cervical stump; Z98.890 Other specified postprocedural states

== ENCOUNTER 2021-01-02 09:55 | Emergency (ER) | payer OTHER ==
[2021-01-02 09:59] VITALS: BP 113/70
[2021-01-02] MEDS ORDERED: FLAGYL500 MG PO (10:54)
[2021-01-02] MEDS ORDERED: IBUPROFEN600 MG PO (10:54)
[2021-01-02] MEDS ORDERED: DOXYCYCLINE100 M3 PO (10:54)
== END 2021-01-02 12:11 | disposition home or self-care (01) ==
LOC: ED 09:55
DX: S61.252A Open bite of right middle finger without damage to nail, initial encounter (principal); E11.9 Type 2 diabetes mellitus without complications; Z88.0 Allergy status to penicillin; Z88.5 Allergy status to narcotic agent; Z88.8 Allergy status to other drugs, medicaments and biological substances; Z79.899 Other long term (current) drug therapy; Z79.2 Long term (current) use of antibiotics; Z90.711 Acquired absence of uterus with remaining cervical stump; Z98.890 Other specified postprocedural states; W55.01XA Bitten by cat, initial encounter; Y92.89 Other specified places as the place of occurrence of the external cause; Y99.8 Other external cause status

== ENCOUNTER 2021-01-30 12:39 | Emergency (ER) | payer OTHER ==
[~2021-01-30] VITALS: Ht 154.9 cm; Wt 112.5 kg
[~2021-01-30 12:39] MED LIST changes: +FLAGYL500 MG PO; +IBUPROFEN600 MG PO
[2021-01-30 13:08] VITALS: BP 131/74
[2021-01-30 14:47] LABS: BASO % 0.2 % (0.0-1.0); EOS % 0.2 % (1.0-4.0); HEMATOCRIT 42.5 % (37.0-47.0); LYMPH # 1.3 10*3/uL (1.3-4.4); LYMPH % 13.8 % (27.0-41.0); MEAN CELL VOLUME 83.7 fl (81.0-99.0); MEAN CORPUSCULAR HGB 25.8 pg (27.0-31.0); MEAN CORPUSCULAR HGB CONC 30.8 g/dl (33.0-37.0); MEAN PLATELET VOLUME 10.5 fl (9.6-12.3); MONO # 0.7 10*3/uL (0.1-1.0); MONO % 7.8 % (3.0-9.0); NEUT # 7.3 10*3/uL (2.3-7.9); NEUT % 77.8 % (47.0-73.0); PLATELET COUNT AUTOMATED 176 10*3/uL (130-400); RED BLOOD COUNT 5.08 10*6/uL (4.10-5.10); RED CELL DISTRI WIDTH 15.5 % (0-14.5); WHITE BLOOD COUNT 9.3 10*3/uL (4.8-10.8)
[2021-01-30 15:00] LABS: ALBUMIN 3.7 gm/dl (3.1-4.5); ALKALINE PHOSPHATASE 81 U/L (45-117); BUN 9 mg/dl (7-24); CHLORIDE 100 mmol/L (98-107); CREATININE 0.86 mg/dL (0.55-1.02); LIPASE 102 U/L (73-393); POTASSIUM 3.9 mmol/L (3.5-5.1); SGOT/AST 11 IU/L (3-35); SGPT/ALT 24 U/L (12-78); SODIUM 134 mmol/L (136-145); TOTAL PROTEIN 7.7 gm/dL (6.4-8.2)
[2021-01-30 15:02] LABS: BILIRUBIN Negative (Negative); BLOOD Negative (Negative); CLARITY Clear (Clear); COLOR Yellow (Yellow); GLUCOSE Negative (Negative); KETONE Negative (Negative); LEUKO ESTERASE Negative (Negative); NITRITE Negative (Negative)
[2021-01-30 15:20] LABS: BACTERIA TRACE; EPITHELIAL CELLS 0-2; RBC 0-2 rbc/hpf (0-2); WBC 0-2 wbc/hpf (0-5)
[2021-01-30] MEDS ORDERED: FLAGYL500 MG PO (20:26)
[2021-01-30] MEDS ORDERED: CIPRO500 MG PO (20:26)
== END 2021-01-30 20:37 | disposition home or self-care (01) ==
LOC: ED 12:39
PROVIDERS: Physician Assistant
DX: K57.32 Diverticulitis of large intestine without perforation or abscess without bleeding (principal); Z20.822 Contact with and (suspected) exposure to COVID-19; Z98.890 Other specified postprocedural states; Z90.711 Acquired absence of uterus with remaining cervical stump; Z98.51 Tubal ligation status; Z88.0 Allergy status to penicillin; Z88.5 Allergy status to narcotic agent; Z88.8 Allergy status to other drugs, medicaments and biological substances; Z79.2 Long term (current) use of antibiotics; Z79.899 Other long term (current) drug therapy

== ENCOUNTER → 2021-04-04 | Outpatient (CLI) | payer OTHER ==
[~2021-04-04] MED LIST changes: +CIPRO500 MG PO
== END | disposition home or self-care (01) ==
LOC: RAD 13:49
PROVIDERS: ATTEND Nurse Practitioner Primary Care
DX: M17.0 Bilateral primary osteoarthritis of knee (principal)

== ENCOUNTER → 2021-10-10 | Outpatient (CLI) | payer OTHER ==
[~2021-10-10] MED LIST changes: +CETIRIZINE HYDR10 MG PO; +INCRUSE ELLI62.5 MCG INH; +MELATONIN10 M4 PO; +QVAR REDIHALE10.6 GM INH; +SERTRALINE HYDR25 MG PO; +VICTOZA 2-0.6 MG/0.1 SQ; +VITAMIN D350 MCG PO; +ZOFRAN4 MG PO
== END | disposition home or self-care (01) ==
LOC: LAB 12:13
PROVIDERS: ATTEND Nurse Practitioner Primary Care
DX: E11.65 Type 2 diabetes mellitus with hyperglycemia (principal)

== ENCOUNTER → 2022-01-18 | Outpatient (CLI) | payer OTHER | END | disposition home or self-care (01) | LOC: CT 14:19 | PROVIDERS: ATTEND Nurse Practitioner Primary Care | DX: I67.82 Cerebral ischemia (principal); H74.8X3 Other specified disorders of middle ear and mastoid, bilateral; E11.8 Type 2 diabetes mellitus with unspecified complications; R40.4 Transient alteration of awareness; R41.3 Other amnesia; E78.5 Hyperlipidemia, unspecified; H53.9 Unspecified visual disturbance; R26.81 Unsteadiness on feet ==

== ENCOUNTER → 2022-02-23 | Outpatient (CLI) | payer OTHER | END | disposition home or self-care (01) | LOC: MRI 08:57 | PROVIDERS: ATTEND Specialist | DX: H74.8X1 Other specified disorders of right middle ear and mastoid (principal); R42 Dizziness and giddiness ==

== ENCOUNTER → 2022-03-28 | Day surgery (SDC) | payer OTHER ==
[~2022-03-28] VITALS: Ht 154.9 cm; Wt 108.0 kg
[~2022-03-28] MED LIST changes: +GLUCOPHAGE500 MG PO; -Metformin Hydr500 MG PO
[2022-03-28 08:10] VITALS: BP 128/93
[2022-03-28 08:44] VITALS: BP 103/57
[2022-03-28 08:59] VITALS: BP 99/72
[2022-03-28 09:14] VITALS: BP 116/71
== END | disposition home or self-care (01) ==
LOC: SDC 03-23 12:30
PROVIDERS: ATTEND Specialist
DX: H69.81 Other specified disorders of Eustachian tube, right ear (principal); H65.491 Other chronic nonsuppurative otitis media, right ear; I10 Essential (primary) hypertension; J44.9 Chronic obstructive pulmonary disease, unspecified; E11.9 Type 2 diabetes mellitus without complications; Z85.41 Personal history of malignant neoplasm of cervix uteri; Z90.710 Acquired absence of both cervix and uterus; Z87.891 Personal history of nicotine dependence; Z88.0 Allergy status to penicillin; Z88.5 Allergy status to narcotic agent; Z79.899 Other long term (current) drug therapy

== ENCOUNTER 2022-05-02 11:45 | Emergency (ER) | payer OTHER ==
[~2022-05-02] VITALS: Ht 154.9 cm; Wt 102.5 kg
[2022-05-02 11:56] VITALS: BP 126/74
[2022-05-02 12:44] LABS: BASO % 0.2 % (0.0-1.0); EOS % 0.9 % (1.0-4.0); LYMPH % 43.7 % (27.0-41.0); MEAN CORPUSCULAR HGB 26.4 pg (27.0-31.0); MEAN CORPUSCULAR HGB CONC 31.1 g/dl (33.0-37.0); MONO # 0.3 10*3/uL (0.1-1.0); MONO % 6.8 % (3.0-9.0); NEUT # 2.2 10*3/uL (2.3-7.9); NEUT % 48.2 % (47.0-73.0); PLATELET COUNT AUTOMATED 162 10*3/uL (130-400); RED BLOOD COUNT 5.41 10*6/uL (4.10-5.10); RED CELL DISTRI WIDTH 15.1 % (0-14.5); WHITE BLOOD COUNT 4.5 10*3/uL (4.8-10.8)
[2022-05-02 13:04] LABS: ALKALINE PHOSPHATASE 69 U/L (45-117); BUN 15 mg/dl (7-24); CHLORIDE 107 mmol/L (98-107); CREATININE 0.75 mg/dL (0.55-1.02); POTASSIUM 4.4 mmol/L (3.5-5.1); SGPT/ALT 27 U/L (12-78); SODIUM 140 mmol/L (136-145); TOTAL PROTEIN 7.6 gm/dL (6.4-8.2)
[2022-05-02] MEDS ORDERED: LEVOFLOXACIN750 M2 PO (14:56)
[2022-05-02] MEDS ORDERED: ONDANSETRON4 MG SL (15:20)
== END 2022-05-02 15:20 | disposition home or self-care (01) ==
LOC: ED 11:45
PROVIDERS: Physician Assistant
DX: H66.91 Otitis media, unspecified, right ear (principal); J06.9 Acute upper respiratory infection, unspecified; Z88.0 Allergy status to penicillin; Z88.8 Allergy status to other drugs, medicaments and biological substances; Z79.899 Other long term (current) drug therapy; Z90.710 Acquired absence of both cervix and uterus; Z98.890 Other specified postprocedural states; Z98.51 Tubal ligation status

== ENCOUNTER 2022-05-16 13:46 | Emergency (ER) | payer OTHER ==
[~2022-05-16 13:46] MED LIST changes: +LEVOFLOXACIN750 M2 PO; +ONDANSETRON4 MG SL
[2022-05-16 14:11] LABS: BASO % 0.4 % (0.0-1.0); EOS # 0.1 10*3/uL (0.0-0.4); EOS % 0.7 % (1.0-4.0); HEMATOCRIT 45.7 % (37.0-47.0); MEAN CELL VOLUME 85.6 fl (81.0-99.0); MEAN CORPUSCULAR HGB 26.8 pg (27.0-31.0); MEAN CORPUSCULAR HGB CONC 31.3 g/dl (33.0-37.0); MEAN PLATELET VOLUME 10.1 fl (9.6-12.3); MONO # 0.5 10*3/uL (0.1-1.0); MONO % 5.5 % (3.0-9.0); NEUT # 6.4 10*3/uL (2.3-7.9); PLATELET COUNT AUTOMATED 223 10*3/uL (130-400); RED BLOOD COUNT 5.34 10*6/uL (4.10-5.10); RED CELL DISTRI WIDTH 15.6 % (0-14.5)
[2022-05-16 14:32] LABS: ALKALINE PHOSPHATASE 71 U/L (46-116); BUN 20 mg/dl (9-23); CHLORIDE 105 mmol/L (98-107); CREATININE 0.86 mg/dL (0.55-1.02); POTASSIUM 4.3 mmol/L (3.4-5.1); SGPT/ALT 17 U/L (10-49); SODIUM 135 mmol/L (136-145); TOTAL PROTEIN 6.9 gm/dL (6.0-8.0)
[2022-05-16 14:35] LABS: ACT PARTIAL THROMBO TIME 26.7 SECONDS (20.0-32.1); INTERNATIONAL NORM RATIO 0.9 (2.0-3.5)
[2022-05-16 14:56] LABS: LIPASE 51 U/L (12-53)
[2022-05-16 17:16] VITALS: BP 110/68
== END 2022-05-16 18:05 | disposition home or self-care (01) ==
LOC: ED 13:46
PROVIDERS: Family Medicine
DX: R07.9 Chest pain, unspecified (principal); I10 Essential (primary) hypertension; E11.9 Type 2 diabetes mellitus without complications; Z88.0 Allergy status to penicillin; Z87.898 Personal history of other specified conditions; Z88.8 Allergy status to other drugs, medicaments and biological substances; Z90.710 Acquired absence of both cervix and uterus; F12.90 Cannabis use, unspecified, uncomplicated

== ENCOUNTER 2022-08-06 10:20 | Emergency (ER) | payer OTHER ==
[~2022-08-06] VITALS: Wt 104.3 kg
[2022-08-06 10:31] VITALS: BP 137/91
[2022-08-06] MEDS ORDERED: VIBRAMYCIN100 MG PO (11:55)
== END 2022-08-06 12:04 | disposition home or self-care (01) ==
LOC: ED 10:20
DX: H66.92 Otitis media, unspecified, left ear (principal); J45.909 Unspecified asthma, uncomplicated; I10 Essential (primary) hypertension; E11.9 Type 2 diabetes mellitus without complications; Z88.0 Allergy status to penicillin; Z88.8 Allergy status to other drugs, medicaments and biological substances; Z90.710 Acquired absence of both cervix and uterus; Z98.890 Other specified postprocedural states; Z98.51 Tubal ligation status; F12.90 Cannabis use, unspecified, uncomplicated; Z88.5 Allergy status to narcotic agent

== ENCOUNTER → 2023-01-02 | Outpatient (CLI) | payer OTHER ==
[~2023-01-02] MED LIST changes: +VIBRAMYCIN100 MG PO
[2023-01-02 08:50] LABS: BASO % 0.5 % (0.0-1.0); EOS % 0.7 % (1.0-4.0); HEMATOCRIT 44.9 % (37.0-47.0); LYMPH # 1.5 10*3/uL (1.3-4.4); LYMPH % 34.8 % (27.0-41.0); MEAN CELL VOLUME 87.9 fl (81.0-99.0); MEAN CORPUSCULAR HGB 26.8 pg (27.0-31.0); MEAN CORPUSCULAR HGB CONC 30.5 g/dl (33.0-37.0); MEAN PLATELET VOLUME 10.3 fl (9.6-12.3); MONO # 0.3 10*3/uL (0.1-1.0); MONO % 7.6 % (3.0-9.0); NEUT # 2.4 10*3/uL (2.3-7.9); NEUT % 56.2 % (47.0-73.0); PLATELET COUNT AUTOMATED 154 10*3/uL (130-400); RED BLOOD COUNT 5.11 10*6/uL (4.10-5.10); RED CELL DISTRI WIDTH 15.2 % (0-14.5); WHITE BLOOD COUNT 4.2 10*3/uL (4.8-10.8)
[2023-01-02 09:41] LABS: ALKALINE PHOSPHATASE 64 U/L (46-116); BUN 14 mg/dl (9-23); CHLORIDE 106 mmol/L (98-107); CHOLESTEROL 160 mg/dL (<200); LDL CHOLESTEROL 86 mg/dL (9-159); POTASSIUM 4.4 mmol/L (3.4-5.1); SGPT/ALT 17 U/L (10-49); TOTAL PROTEIN 6.4 gm/dL (6.0-8.0); TRIGLYCERIDES 60 mg/dl (<150)
== END | disposition home or self-care (01) ==
LOC: LAB 08:28
PROVIDERS: ATTEND Nurse Practitioner Primary Care
DX: E11.9 Type 2 diabetes mellitus without complications (principal); I10 Essential (primary) hypertension; E55.9 Vitamin D deficiency, unspecified; Z79.4 Long term (current) use of insulin

== ENCOUNTER → 2023-01-08 | Outpatient (CLI) | payer OTHER | END | disposition home or self-care (01) | LOC: CT 00:15 | PROVIDERS: ATTEND Nurse Practitioner Primary Care | DX: R25.1 Tremor, unspecified (principal); R42 Dizziness and giddiness; H53.9 Unspecified visual disturbance; R68.89 Other general symptoms and signs ==

== ENCOUNTER → 2023-05-10 | Outpatient (CLI) | payer OTHER | END | disposition home or self-care (01) | LOC: CT 08:53 | PROVIDERS: ATTEND Specialist | DX: J32.0 Chronic maxillary sinusitis (principal); J34.89 Other specified disorders of nose and nasal sinuses; H74.8X1 Other specified disorders of right middle ear and mastoid ==

== ENCOUNTER 2023-11-11 13:14 | Emergency (ER) | payer OTHER ==
[~2023-11-11] VITALS: Ht 154.9 cm; Wt 94.9 kg
[2023-11-11 14:04] VITALS: BP 105/57
[2023-11-11] MEDS ORDERED: Cyclobenzaprine Hydrochlorid 10 MG TAB PO ONE (14:15)
[2023-11-11] MEDS ORDERED: methylPREDNISolone sod succ 125 MG VIAL IM ONE (14:15)
[2023-11-11] MEDS ORDERED: Ketorolac Tromethamine 30 MG/ML VIAL IM ONE (14:15)
[2023-11-11] MEDS ORDERED: OMNICEF300 MG PO (16:54)
== END 2023-11-11 17:00 | disposition home or self-care (01) ==
LOC: ED 13:14
DX: H70.91 Unspecified mastoiditis, right ear (principal); E11.9 Type 2 diabetes mellitus without complications; J44.9 Chronic obstructive pulmonary disease, unspecified; F41.9 Anxiety disorder, unspecified; I10 Essential (primary) hypertension; E78.5 Hyperlipidemia, unspecified; Z88.0 Allergy status to penicillin; Z88.5 Allergy status to narcotic agent; Z88.8 Allergy status to other drugs, medicaments and biological substances; Z90.710 Acquired absence of both cervix and uterus; Z98.890 Other specified postprocedural states; Z98.51 Tubal ligation status; F12.90 Cannabis use, unspecified, uncomplicated; J45.909 Unspecified asthma, uncomplicated

== ENCOUNTER → 2023-12-11 | Outpatient (CLI) | payer OTHER ==
[~2023-12-11] MED LIST changes: +OMNICEF300 MG PO
[2023-12-11 08:26] LABS: EOS # 0.1 10*3/uL (0.0-0.4); EOS % 1.8 % (1.0-4.0); HEMATOCRIT 45.2 % (37.0-47.0); LYMPH # 1.3 10*3/uL (1.3-4.4); LYMPH % 32.7 % (27.0-41.0); MEAN CELL VOLUME 87.9 fl (81.0-99.0); MEAN CORPUSCULAR HGB 26.3 pg (27.0-31.0); MEAN CORPUSCULAR HGB CONC 29.9 g/dl (33.0-37.0); MEAN PLATELET VOLUME 10.1 fl (9.6-12.3); MONO # 0.3 10*3/uL (0.1-1.0); MONO % 7.3 % (3.0-9.0); NEUT # 2.2 10*3/uL (2.3-7.9); NEUT % 57.2 % (47.0-73.0); PLATELET COUNT AUTOMATED 157 10*3/uL (130-400); RED BLOOD COUNT 5.14 10*6/uL (4.10-5.10); RED CELL DISTRI WIDTH 14.8 % (0-14.5); WHITE BLOOD COUNT 3.9 10*3/uL (4.8-10.8)
[2023-12-11 08:40] LABS: ALKALINE PHOSPHATASE 61 U/L (46-116); BUN 11 mg/dl (9-23); CHLORIDE 108 mmol/L (98-107); POTASSIUM 4.5 mmol/L (3.4-5.1); SGPT/ALT 16 U/L (5-49); TOTAL PROTEIN 6.6 gm/dL (6.0-8.0)
== END | disposition home or self-care (01) ==
LOC: LAB 07:46
PROVIDERS: Nurse Practitioner Primary Care; ATTEND Internal Medicine Hematology & Oncology
DX: Z01.818 Encounter for other preprocedural examination (principal); I10 Essential (primary) hypertension; H65.491 Other chronic nonsuppurative otitis media, right ear; E11.9 Type 2 diabetes mellitus without complications

== ENCOUNTER 2024-01-07 09:36 | Emergency (ER) | payer OTHER ==
[~2024-01-07] VITALS: Ht 154.9 cm; Wt 95.7 kg
[2024-01-07 09:43] VITALS: BP 140/82
[2024-01-07] MEDS ORDERED: Ketorolac Tromethamine 30 MG/ML VIAL IM ONE (10:05)
[2024-01-07 10:47] LABS: BUN 16 mg/dl (9-23); CHLORIDE 105 mmol/L (98-107); POTASSIUM 4.1 mmol/L (3.4-5.1)
== END 2024-01-07 11:58 | disposition home or self-care (01) ==
LOC: ED 09:36
PROVIDERS: Emergency Medicine
DX: M79.18 Myalgia, other site (principal); M79.601 Pain in right arm; M79.602 Pain in left arm; M79.604 Pain in right leg; M79.605 Pain in left leg; Z88.0 Allergy status to penicillin; Z88.5 Allergy status to narcotic agent; Z88.8 Allergy status to other drugs, medicaments and biological substances; Z79.2 Long term (current) use of antibiotics; Z79.899 Other long term (current) drug therapy; Z79.84 Long term (current) use of oral hypoglycemic drugs; Z90.710 Acquired absence of both cervix and uterus; Z98.890 Other specified postprocedural states; Z98.51 Tubal ligation status

== ENCOUNTER → 2025-06-07 | Outpatient (CLI) | payer OTHER | LOC: MAMMO 01:32 | PROVIDERS: ATTEND Nurse Practitioner Primary Care | DX: Z12.31 Encounter for screening mammogram for malignant neoplasm of breast (principal); Z78.0 Asymptomatic menopausal state ==